=== PATIENT | male | born 1960 | race Caucasian/White ===

== ENCOUNTER 2019-06-05 08:12 | Outpatient (CLI) | payer BC ==
[~2019-06-05] VITALS: Ht 177.8 cm; Wt 98.0 kg
[~2019-06-05 08:12] MED LIST: ATIVAN 1MG T1 MG/TAB PO
[2019-06-05] MEDS ORDERED: ATIVAN 1MG T1 MG/TAB PO (08:34)
[2019-06-05] MEDS ORDERED: KLOR-CON M2020 MEQ PO (08:35)
[2019-06-05] MEDS ORDERED: COZAAR100 MG PO (08:35)
[2019-06-05] MEDS ORDERED: MAGNESIUM ELEME30 MG PO (08:36)
[2019-06-05] MEDS ORDERED: PROBIOTIC FORMU1 CAP PO (08:37)
[2019-06-05] MEDS ORDERED: HCTZ 25MG TAB25 MG PO (08:37)
[2019-06-05] MEDS ORDERED: ASPIRIN E.C. 8181 MG PO (08:37)
[2019-06-05] MEDS ORDERED: PROAIR HFA0.09 MG/AC IH (08:38)
[2019-06-05] MEDS ORDERED: FLOVENT 110MCG7.9 GM IH (08:39)
[2019-06-05] MEDS ORDERED: ALEVE 220MG220 MG PO (08:40)
[2019-06-05 08:45] VITALS: BP 137/95; PULSE 61; TEMP 97.9
[2019-06-05] MEDS ORDERED: CEPHALEXIN500 M1 PO (09:14)
[2019-06-05 10:15] VITALS: BP 123/75; PULSE 58
--- NOTE | 2019-06-05 10:15 | NUR ---
Pt ver[place] loop recorder placement with mild discomfort. Ice pack placed over L chest loop recorder site.
[2019-06-05 10:45] VITALS: BP 126/76; PULSE 71
--- NOTE | 2019-06-05 10:55 | NUR ---
Pt discharged per ambulation with .
== END 2019-06-05 11:31 | disposition home or self-care (01) ==
LOC: COL.CAR 08:12
DX: I47.1 Supraventricular tachycardia (principal); I10 Essential (primary) hypertension; F41.1 Generalized anxiety disorder; J45.909 Unspecified asthma, uncomplicated; F32.9 Major depressive disorder, single episode, unspecified; E66.9 Obesity, unspecified; M19.90 Unspecified osteoarthritis, unspecified site; I49.1 Atrial premature depolarization; I49.3 Ventricular premature depolarization; Z98.52 Vasectomy status; Z88.1 Allergy status to other antibiotic agents; Z79.51 Long term (current) use of inhaled steroids; Z87.891 Personal history of nicotine dependence; Z80.9 Family history of malignant neoplasm, unspecified; Z83.3 Family history of diabetes mellitus; Z82.61 Family history of arthritis; Z82.3 Family history of stroke; Z82.49 Family history of ischemic heart disease and other diseases of the circulatory system
CPT/HCPCS: 27776; C1764

== ENCOUNTER 2019-08-05 08:13 | Inpatient (IN) | payer BC ==
[~2019-08-05] VITALS: Ht 177.8 cm; Wt 94.9 kg
[~2019-08-05 08:13] MED LIST changes: +ALEVE 220MG220 MG PO; +ASPIRIN E.C. 8181 MG PO; +CEPHALEXIN500 M1 PO; +COZAAR100 MG PO; +FLOVENT 110MCG7.9 GM IH; +HCTZ 25MG TAB25 MG PO; +KLOR-CON M2020 MEQ PO; +MAGNESIUM ELEME30 MG PO; +PROAIR HFA0.09 MG/AC IH; +PROBIOTIC FORMU1 CAP PO
[2019-08-05 08:24] VITALS: BP 137/99; PULSE 75; TEMP 98.5
[2019-08-05 09:02] LABS: BASO # 0.1 (0.0-0.2); BASO % 1.3 % (0.0-2.0); EOS # 0.4 (0.0-0.7); EOS % 6.2 % (0-4.0); GRAN # 3.4 (1.4-6.5); GRAN % 54.3 % (42.2-75.2); HEMATOCRIT 43.5 % (42.0-52.0); LYMPH # 1.8 (1.2-3.4); MEAN CELL VOLUME 88 fl (80.0-100.0); MEAN CORPUSCULAR HEMOGLOBIN 30 pg (27.0-31.0); MEAN CORPUSCULAR HGB CONC 35 g/dl (33.0-37.0); MEAN PLATELET VOLUME 10.1 fl (7.4-10.4); MONO # 0.6 (0.1-0.6); MONO % 8.9 % (1.7-9.3); PLATELET COUNT 211 K/mm3 (130-400); RED BLOOD COUNT 4.97 M/mm3 (4.20-5.60); REDCELL DISTRIBUTION WIDTH-CV 12.2 % (11.5-14.5)
[2019-08-05 09:03] LABS: PROTHROMBIN TIME 12.2 SECONDS (9.7-12.8)
[2019-08-05 09:14] LABS: ALBUMIN 4.7 gm/dL (3.5-5.0); BILIRUBIN,TOTAL 0.7 mg/dL (0.0-1.0); CALCIUM 9.6 mg/dL (8.4-10.2); CREATININE, serum 0.87 (0.66-1.25); MAGNESIUM 1.8 mg/dL (1.6-2.3); POTASSIUM 4.1 mmol/L (3.4-5.0)
--- NOTE | 2019-08-05 10:00 | NUR ---
Admission asssessment completed, alert/oriented, vital signs stable, denies any pain or discomfort, heart RRR/ SR on tele, distal pulses are palpable, lungs CTA/ no reps.difficulty, home meds reconciled/ pharmacy and allergies reviewed, notified Cardiology of arrival, EKG done and first dose of Sotalol given as ordered, patient is up independently and denies other needs or concerns
[2019-08-05 11:10] VITALS: BP 130/80; PULSE 91; TEMP 98.7
[2019-08-05 15:06] VITALS: BP 125/84; PULSE 72; TEMP 98.5
--- NOTE | 2019-08-05 16:25 | NUR ---
[employer] Hide Trimmer met with patient to discuss discharge planning. Patient lives in [place] with his , Darlene (work#[phone] cell#[phone]). Patient sees Dr. Sams for primary care and obtains medications from [facility]. Patient reports independence with ADLS and does not use DME. Patient provided copy of DPOA-HC and SW placed copy in patient chart. Patient plans to return home upon discharge.
[2019-08-05 20:43] VITALS: BP 130/81; PULSE 66; TEMP 97.8
[2019-08-06] VITALS (8 sets, daily range): BP systolic 11–145; BP diastolic 69–82; PULSE 52–92; TEMP 97.1–98.7
[2019-08-06 07:15] LABS: BASO # 0.1 (0.0-0.2); BASO % 0.6 % (0.0-2.0); EOS # 1.1 (0.0-0.7); EOS % 14.2 % (0-4.0); GRAN # 3.7 (1.4-6.5); GRAN % 48.1 % (42.2-75.2); HEMATOCRIT 44.8 % (42.0-52.0); HEMOGLOBIN 15.6 g/dl (13.5-18.0); LYMPH # 2.2 (1.2-3.4); LYMPH % 28.5 % (20.0-51.0); MEAN CELL VOLUME 86 fl (80.0-100.0); MEAN CORPUSCULAR HEMOGLOBIN 30 pg (27.0-31.0); MEAN CORPUSCULAR HGB CONC 35 g/dl (33.0-37.0); MEAN PLATELET VOLUME 10.2 fl (7.4-10.4); MONO # 0.6 (0.1-0.6); PLATELET COUNT 243 K/mm3 (130-400); REDCELL DISTRIBUTION WIDTH-CV 12.2 % (11.5-14.5)
[2019-08-06 07:27] LABS: CALCIUM 9.4 mg/dL (8.4-10.2); CREATININE, serum 0.92 (0.66-1.25); MAGNESIUM 1.9 mg/dL (1.6-2.3); POTASSIUM 3.4 mmol/L (3.4-5.0)
--- NOTE | 2019-08-06 19:11 | NUR ---
Patient is observed ambulating in hallway, states he is bored. Personal items are available when patient returns to room.
--- NOTE | 2019-08-06 19:30 | NUR ---
Shift assessment complete. Patient ambulating in hallway, and in room. Denies pain. Denies further needs at this time. Will continue to monitor.
--- NOTE | 2019-08-06 22:51 | NUR ---
Per monitor room, HR 40's on tele. Patient sleeping. VS stable. Patient asymptomatic. Will notify [facility] [employer].
[2019-08-07 04:00] VITALS: BP 115/73; PULSE 50; TEMP 97.9
[2019-08-07 05:41] VITALS: BP 127/84; PULSE 58
--- NOTE | 2019-08-07 06:08 | NUR ---
Patient in room, sitting in chair. Requesting daily meds to be given early. Meds given. Pt denies further needs at this time. Will continue to monitor.
[2019-08-07 07:22] LABS: BASO # 0.1 (0.0-0.2); BASO % 0.7 % (0.0-2.0); EOS # 1.3 (0.0-0.7); EOS % 15.7 % (0-4.0); GRAN # 4.2 (1.4-6.5); GRAN % 49.1 % (42.2-75.2); HEMATOCRIT 45.6 % (42.0-52.0); HEMOGLOBIN 15.7 g/dl (13.5-18.0); LYMPH # 2.2 (1.2-3.4); LYMPH % 25.7 % (20.0-51.0); MEAN CELL VOLUME 87 fl (80.0-100.0); MEAN CORPUSCULAR HEMOGLOBIN 30 pg (27.0-31.0); MEAN CORPUSCULAR HGB CONC 34 g/dl (33.0-37.0); MEAN PLATELET VOLUME 10.5 fl (7.4-10.4); MONO # 0.7 (0.1-0.6); MONO % 8.2 % (1.7-9.3); PLATELET COUNT 237 K/mm3 (130-400); RED BLOOD COUNT 5.27 M/mm3 (4.20-5.60); REDCELL DISTRIBUTION WIDTH-CV 12.1 % (11.5-14.5)
[2019-08-07 07:30] LABS: CALCIUM 9.4 mg/dL (8.4-10.2); CREATININE, serum 0.95 (0.66-1.25); POTASSIUM 3.5 mmol/L (3.4-5.0)
--- NOTE | 2019-08-07 08:23 | NUR ---
Spoke with primary prior to sotolol administration. QTC 424.
[2019-08-07 08:44] VITALS: BP 124/78; PULSE 61; TEMP 97.9
[2019-08-07] MEDS ORDERED: BETAPACE 80MG80 MG PO (10:53)
--- NOTE | 2019-08-07 11:40 | NUR ---
Initial visit; Patient thanked Ban[employer] for stopping and visiting. He recalls [employer] visits with his parents. Ban[employer] Cook offered God's blessings.
--- NOTE | 2019-08-07 13:39 | NUR ---
Discharge orders discussed with patient, instructed to follow up with cardiology as scheduled, instructed to take Sotalol as prescribed/ [facility], IV and tele removed, patient is leaving with his mother, he is ambulatory and leaving with his mother/ I personally escorted them out the door
--- NOTE | 2019-08-07 13:50 | NUR ---
Primary nurse was assisted with [id number] patient care by [employer] [facility] Hermelinda Ramsay and [employer] instructor Nalini Serrano RN-.
== END 2019-08-07 13:48 | disposition home or self-care (01) | DRG 310 ==
LOC: MEDICAL 08:13
PROVIDERS: ADMIT Internal Medicine Cardiovascular Disease
DX: I47.2 Ventricular tachycardia (principal); I48.0 Paroxysmal atrial fibrillation; F41.1 Generalized anxiety disorder; I10 Essential (primary) hypertension; J45.909 Unspecified asthma, uncomplicated

== ENCOUNTER 2021-11-08 08:00 | Day surgery (SDC) | payer BC ==
[~2021-11-08] VITALS: Ht 177.8 cm; Wt 101.8 kg
[~2021-11-08 08:00] MED LIST changes: +BETAPACE 80MG80 MG PO; +COZAAR 50MG50 MG/TAB PO; -COZAAR100 MG PO
[2021-11-08] MEDS ORDERED: ELIQUIS 5MG PO (08:37)
[2021-11-08] MEDS ORDERED: OCEAN NASAL SPR45 ML NS (08:40)
[2021-11-08] MEDS ORDERED: AYR SALINE MIST50 ML NS (08:40)
[2021-11-08] MEDS ORDERED: MEN'S ONE DAIL1 EACH PO (08:41)
[2021-11-08] MEDS ORDERED: VITAMIN C500 MG PO (08:41)
[2021-11-08] MEDS ORDERED: NEO SYNEPHRINE NS (08:41)
[2021-11-08] MEDS ORDERED: VITAMIN D250 MCG PO (08:42)
[2021-11-08 08:54] VITALS: BP 130/87; PULSE 60; TEMP 98.4
[2021-11-08 10:53] VITALS: BP 117/78; PULSE 53
[2021-11-08 11:00] VITALS: BP 119/69; PULSE 51
[2021-11-08 11:15] VITALS: BP 112/73; PULSE 52
[2021-11-08] MEDS ORDERED: CEPHALEXIN500 M1 PO (11:23)
[2021-11-08 11:30] VITALS: BP 113/73; PULSE 50
[2021-11-08 11:45] VITALS: BP 108/71; PULSE 53
--- NOTE | 2021-11-08 11:50 | NUR ---
DC instructions reviewed with pt and , both express understanding. Gauze dressing over loop removal site remains clean, dry and intact. Pt alert, free of complaints. He is steady on feet around room. INT DC'd with catheter intact. He is assisted out to elevator with steady gait and personal belongings.
== END 2021-11-08 11:50 | disposition home or self-care (01) ==
LOC: COL.CAR 08:00
DX: I48.91 Unspecified atrial fibrillation (principal); I47.1 Supraventricular tachycardia; I49.3 Ventricular premature depolarization; J45.909 Unspecified asthma, uncomplicated; I10 Essential (primary) hypertension
CPT/HCPCS: J0690; J2250; J3010; J7050

== ENCOUNTER 2021-12-21 07:05 | Day surgery (SDC) | payer BC ==
[~2021-12-21] VITALS: Ht 177.8 cm; Wt 100.7 kg
[~2021-12-21 07:05] MED LIST changes: +AYR SALINE MIST50 ML NS; +ELIQUIS 5MG PO; +MEN'S ONE DAIL1 EACH PO; +NEO SYNEPHRINE NS; +OCEAN NASAL SPR45 ML NS; +VITAMIN C500 MG PO; +VITAMIN D250 MCG PO
[2021-12-21 07:32] VITALS: BP 131/94; PULSE 75; TEMP 97.8
[2021-12-21 08:35] VITALS: BP 131/94; PULSE 74; TEMP 97.4
--- NOTE | 2021-12-21 08:35 | NUR ---
Pt arrived from endo suite, drowsy but oriented. Vitals obtained and are WNL. Verbal room report obtained. Pt requested water without ice and vanilla ice cream. is present. Will continue to monitor per intervals. Call watson is within reach at bedside.
[2021-12-21 08:50] VITALS: BP 114/88; PULSE 57
--- NOTE | 2021-12-21 08:50 | NUR ---
Pt is awake and oriented x3. Expressed desire to be discharged. Vitals obtained and are WNL. Call watson remains within reach.
[2021-12-21 09:05] VITALS: BP 116/81; PULSE 55
--- NOTE | 2021-12-21 09:05 | NUR ---
Vitals obtained. DC instructions and educational material reviewed with pt and his , who verbalized understanding and signed the related paperwork. IV discontinued. Catheter tip intact. Pressure bandage applied. No redness or swelling noted. Pt denied needing assistance changing into personal clothes. Call watson remains within reach.
== END 2021-12-21 09:15 | disposition home or self-care (01) ==
LOC: SDCO 07:05
DX: Z12.11 Encounter for screening for malignant neoplasm of colon (principal); K62.89 Other specified diseases of anus and rectum; E66.9 Obesity, unspecified; Z68.33 Body mass index [BMI] 33.0-33.9, adult; Z87.891 Personal history of nicotine dependence; Z79.01 Long term (current) use of anticoagulants
CPT/HCPCS: J2704; J7030